=== PATIENT | male | born 1945 | race Caucasian/White ===

== ENCOUNTER 2023-06-15 15:21 | Outpatient (CLI) | payer MEDICARE, OTHER | END 2023-06-15 15:22 | disposition critical access hospital (66) | LOC: EMS 15:21 | DX: R46.89 Other symptoms and signs involving appearance and behavior (principal); M54.9 Dorsalgia, unspecified; W19.XXXA Unspecified fall, initial encounter; Y92.099 Unspecified place in other non-institutional residence as the place of occurrence of the external cause | CPT/HCPCS: A0425; A0429 ==

== ENCOUNTER 2023-06-15 15:42 | Emergency (ER) | payer MEDICARE, OTHER ==
[2023-06-15 16:29] LABS: BASOPHILS % (AUTO) 0.2 %; EOSINOPHILS # (AUTO) 0.3 10^3/uL (0.0-0.7); EOSINOPHILS % (AUTO) 5.6 %; HCT - HEMATOCRIT 34.4 % (42.0-52.0); HGB - HEMOGLOBIN 11.4 g/dL (14.0-18.0); LYMPHOCYTES # (AUTO) 0.6 10^3/uL (1.5-3.5); LYMPHOCYTES % (AUTO) 11.1 %; MEAN CORPUSCULAR HEMOGLOBIN 31.8 pg (27.0-31.0); MEAN CORPUSCULAR HGB CONC 33.1 g/dL (32.0-36.0); MEAN CORPUSCULAR VOLUME 96.1 fL (80.0-94.0); MEAN PLATELET VOLUME 9.8 fL (7.4-11.4); MONOCYTES # (AUTO) 0.5 10^3/uL (0.0-1.0); MONOCYTES % (AUTO) 8.7 %; NEUTROPHILS # (AUTO) 3.9 10^3/uL (1.5-6.6); PLT - PLATELET COUNT 192 10^3/uL (130-450); RED BLOOD COUNT 3.58 10^6/uL (4.70-6.10); RED CELL DISTRIBUTION WIDTH 15.1 % (12.0-15.0); WHITE BLOOD COUNT 5.3 x10^3/uL (4.8-10.8)
--- NOTE | 2023-06-15 16:44 | XRAY Report ---
PROCEDURE: Chest 1 View X-Ray INDICATIONS: AMS TECHNIQUE: One view of the chest was acquired. COMPARISON: None. FINDINGS: Surgical changes and devices: Median sternotomy wires and surgical clips are seen.. Lungs and pleura: No pleural effusions or pneumothorax. Lungs are clear. Mediastinum: Mediastinal contours appear normal. Heart size is normal. Bones and chest wall: No suspicious bony lesions. Overlying soft tissues appear unremarkable. IMPRESSION: No acute cardiopulmonary process. Reviewed by: Kulwinder To MD on 06/15/2023 4:43 PM PDT Approved by: Kulwinder To MD on 06/15/2023 4:43 PM PDT Station ID: [id number]
[2023-06-15 16:59] LABS: ALBUMIN 3.9 g/dL (3.2-5.5); ALBUMIN/GLOBULIN RATIO 1.8 (1.0-2.2); ALKALINE PHOSPHATASE 67 IU/L (42-121); ALT ALANINE AMINOTRANSFERASE 26 IU/L (10-60); AST ASPARTATE AMINOTRANSFERASE 28 IU/L (10-42); BILIRUBIN,TOTAL 0.4 mg/dL (0.2-1.0); BUN - BLOOD UREA NITROGEN 19 mg/dL (6-20); CALCIUM 9.2 mg/dL (8.5-10.3); CARBON DIOXIDE - CO2 30 mmol/L (21-32); CHLORIDE 103 mmol/L (101-111); CREATININE 0.7 mg/dL (0.6-1.3); ETOH - ETHANOL < 10.0 mg/dL; GFR - MDRD 109 (>89); GLUCOSE 139 mg/dL (74-104); MAGNESIUM 1.4 mg/dL (1.7-2.3); POTASSIUM 3.8 mmol/L (3.5-4.5); SODIUM 139 mmol/L (135-145); TOTAL PROTEIN 6.1 g/dL (6.4-8.9)
[2023-06-15 17:01] LABS: MUDS CUTOFF CONCENTRATIONS CUTOFF CONC BELOW:
[2023-06-15 17:02] LABS: SALICYLATE < 1.5 mg/dL; THYROID STIMULATING HORMONE 0.12 uIU/mL (0.34-5.60)
[2023-06-15 17:03] LABS: BILIRUBIN,URINE NEGATIVE (NEGATIVE); GLUCOSE, URINE (UA) NEGATIVE (NEGATIVE); KETONES,URINE (UA) TRACE mg/dL (NEGATIVE); LEUKOCYTE ESTERASE, URINE NEGATIVE (NEGATIVE); NITRITE,URINE NEGATIVE (NEGATIVE); OCCULT BLOOD,URINE NEGATIVE (NEGATIVE); PROTEIN,URINE NEGATIVE (NEGATIVE); UROBILINOGEN,URINE 0.2 (NORMAL) E.U./dL (NORMAL)
[2023-06-15 17:05] LABS: CLARITY,URINE CLEAR (CLEAR)
--- NOTE | 2023-06-15 17:11 | ED Physician Documentation ---
History of Present Illness - Stated complaint Stated Complaint: FALL/BACK PX - Chief complaint Chief Complaint: General - History obtained from History obtained from: Patient, Family, Other (Social work) - Additonal information Additional information: 78-year-old male with history of Alzheimer's presents by EMS from [facility]. EMS states that the call was made for a ground-level fall with lumbar back pain. EMS also stated that the patient was reported to be agitated and possibly violent. On arrival the patient was calm, cooperative, no acute distress, denying complaint. at bedside states that patient has had outbursts over the last several weeks and they are trying to figure out a good medication regimen for the patient for his agitation Social work came shortly after patient's arrival and stated that they talked to the nursing informatics specialist. customs port director told social work that they needed a [facility] psych consultation for violence and outbursts Review of Systems Unable to obtain: Dementia PD PAST MEDICAL HISTORY - Past Medical History Past Medical History: Yes - Present Medications Home Medications: Ambulatory Orders Medication Instructions Recorded Confirmed Albuterol Sulf [Ventolin Hfa 2 puffs PO Q6H PRN 06/15/23 06/15/23 Inhaler] Aspirin [Vazalore] 162 mg PO BID 06/15/23 06/15/23 Atorvastatin Calcium [Lipitor] 80 mg PO DAILY 06/15/23 06/15/23 Citalopram [CeleXA] 30 mg PO DAILY 06/15/23 06/15/23 Divalproex Sodium [Depakote ER] 500 mg PO DAILY 06/15/23 06/15/23 HYDROcod/ACETAM 5/325 [Sheldon 5/325] 1 unit PO DAILY 06/15/23 06/15/23 LORazepam [Ativan] 0.5 mg PO BID 06/15/23 06/15/23 Lidocaine Patch 5% [Lidoderm Patch] 1 unit TOP DAILY 06/15/23 06/15/23 Melatonin/Pyridoxine [Melatonin 5 1 each PO QPM 06/15/23 06/15/23 mg Tablet] Metoprolol Succinate [Kapspargo 50 mg PO DAILY 06/15/23 06/15/23 Sprinkle] Mirtazapine [Remeron] 15 mg PO QPM 06/15/23 06/15/23 Multivitamin 1 unit PO DAILY 06/15/23 06/15/23 OLANZapine [Zyprexa] 2.5 mg PO DAILY 06/15/23 06/15/23 Tamsulosin [Flomax] 1 cap PO DAILY 06/15/23 06/15/23 Triamcinolone 0.1% Cream [Kenalog 1 applic TOP DAILY 06/15/23 06/15/23 0.1% Cream] metFORMIN [Glucophage] 1,000 mg PO BID 06/15/23 06/15/23 traZODone [Desyrel] 50 mg PO BID 06/15/23 06/15/23 - Allergies Allergies/Adverse Reactions: Allergies Allergy/AdvReac Type Severity Reaction Status Date / Time donepezil Allergy Hallucinati Verified 06/15/23 15:58 ons quetiapine [From Seroquel] Allergy Hallucinati Verified 06/15/23 15:58 ons PD ED PE NORMAL - Vitals Vital signs reviewed: Yes - General General: No acute distress, Well developed/nourished, Other (AOx2) - HEENT HEENT: Atraumatic - Cardiac Cardiac: RRR, Strong equal pulses - Respiratory Respiratory: No respiratory distress, Clear bilaterally - Abdomen Abdomen: Soft, Non tender - Derm Derm: Normal color, Warm and dry, No rash - Extremities Extremities: No deformity, No tenderness to palpate, Normal ROM s pain, No edema - Neuro Neuro: Alert and oriented X 3, wild life photographer 2-12 intact, No motor deficit, Normal speech - Psych Psych: Normal mood, Normal affect Results - Vitals Vitals: Vital Signs - 24 hr 06/15/23 06/15/23 15:52 20:29 Temperature 37.3 C Heart Rate 59 L 60 Respiratory 20 18 Rate Blood Pressure 136/76 H 100/54 L O2 Saturation 100 99 Oxygen O2 Source Room air - Labs Labs: Laboratory Tests 06/15/23 06/15/23 06/15/23 16:23 16:23 16:43 WBC 5.3 RBC 3.58 L Hgb 11.4 L Hct 34.4 L MCV 96.1 H MCH 31.8 H MCHC 33.1 RDW 15.1 H Plt Count 192 MPV 9.8 Neut # (Auto) 3.9 Lymph # (Auto) 0.6 L [place] # (Auto) 0.5 Eos # (Auto) 0.3 Baso # (Auto) 0.0 Absolute Nucleated RBC 0.00 Nucleated RBC % 0.0 Sodium 139 Potassium 3.8 Chloride 103 Carbon Dioxide 30 Anion Gap 6.0 BUN 19 Creatinine 0.7 Estimated GFR (MDRD) 109 Glucose 139 H Calcium 9.2 Magnesium 1.4 L Total Bilirubin 0.4 AST 28 ALT 26 Alkaline Phosphatase 67 Total Protein 6.1 L Albumin 3.9 Globulin 2.2 Albumin/Globulin Ratio 1.8 TSH 0.12 L Urine Color YELLOW Urine Clarity CLEAR Urine pH 7.0 Ur Specific [place] 1.015 Urine Protein NEGATIVE Urine Glucose (UA) NEGATIVE Urine Ketones TRACE Urine Occult Blood NEGATIVE Urine Nitrite NEGATIVE Urine Bilirubin NEGATIVE Urine Urobilinogen 0.2 (NORMAL) Ur Leukocyte Esterase NEGATIVE Ur Microscopic Review NOT INDICATED Urine Culture Comments NOT INDICATED Salicylates < 1.5 Urine Opiates Screen Ur Oxycodone Screen Urine Methadone Screen Ur Propoxyphene Screen Acetaminophen 2.0 Ur Barbiturates Screen Ur Tricyclics Screen Ur Phencyclidine Scrn Ur Amphetamine Screen U Methamphetamines Scrn U Benzodiazepines Scrn Urine Cocaine Screen U Cannabinoids Screen Ethyl Alcohol < 10.0 06/15/23 16:43 WBC RBC Hgb Hct MCV MCH MCHC RDW Plt Count MPV Neut # (Auto) Lymph # (Auto) [place] # (Auto) Eos # (Auto) Baso # (Auto) Absolute Nucleated RBC Nucleated RBC % Sodium Potassium Chloride Carbon Dioxide Anion Gap BUN Creatinine Estimated GFR (MDRD) Glucose Calcium Magnesium Total Bilirubin AST ALT Alkaline Phosphatase Total Protein Albumin Globulin Albumin/Globulin Ratio TSH Urine Color Urine Clarity Urine pH Ur Specific [place] Urine Protein Urine Glucose (UA) Urine Ketones Urine Occult Blood Urine Nitrite Urine Bilirubin Urine Urobilinogen Ur Leukocyte Esterase Ur Microscopic Review Urine Culture Comments Salicylates Urine Opiates Screen POSITIVE H Ur Oxycodone Screen NEGATIVE Urine Methadone Screen NEGATIVE Ur Propoxyphene Screen NEGATIVE Acetaminophen Ur Barbiturates Screen NEGATIVE Ur Tricyclics Screen NEGATIVE Ur Phencyclidine Scrn NEGATIVE Ur Amphetamine Screen NEGATIVE U Methamphetamines Scrn NEGATIVE U Benzodiazepines Scrn POSITIVE H Urine Cocaine Screen NEGATIVE U Cannabinoids Screen NEGATIVE Ethyl Alcohol PD Medical Decision Making - ED course Complexity details: reviewed results, re-evaluated patient, considered differential, d/w patient, d/w reporting consultant ED course: Possible fall, patient primarily sent in for worsening agitation and outburst. He is currently calm, cooperative, resting comfortably in bed and eating Cheetos.Denies complaints. Patient is medically cleared for psychiatric consult. Patient thoroughly evaluated by telemetry psychiatry. They have made medication recommendations as well as recommendation for further evaluation of thyroid due to decreased TSH. This can be done on an outpatient basis. Patient discharged back to facility in stable condition. Departure - Departure Disposition: 01 Home, Self Care Clinical Impression: Dementia with behavioral disturbance Condition: Stable Instructions: ED Dementia Caregiver Support Forms: PCP List
[2023-06-15 17:24] LABS: AMPHETAMINE SCREEN,URINE NEGATIVE (NEGATIVE); BARBITURATE SCREEN,UR NEGATIVE (NEGATIVE); BENZODIAZEPINES SCREEN, URINE POSITIVE (NEGATIVE); COCAINE SCREEN URINE NEGATIVE (NEGATIVE); METHADONE SCREEN, URINE NEGATIVE (NEGATIVE); METHAMPHETAMINES SCREEN, URINE NEGATIVE (NEGATIVE); OPIATE SCREEN, URINE POSITIVE (NEGATIVE); OXYCODONE SCREEN, URINE NEGATIVE (NEGATIVE); PROPOXYPHENE SCREEN, URINE NEGATIVE (NEGATIVE); THC CANNABINOID SCREEN, URINE NEGATIVE (NEGATIVE); TRICYCLIC ANTIDEPRESSANT,URINE NEGATIVE (NEGATIVE)
--- NOTE | 2023-06-15 18:45 | CT Report ---
PROCEDURE: HEAD WO INDICATIONS: AMS TECHNIQUE: Noncontrast 4.5 mm thick angled axial sections acquired from the foramen magnum to the vertex. For r adiation dose reduction, the following was used: automated exposure control, adjustment of mA and/or kV according to patient size. COMPARISON: None. FINDINGS: Image quality: Excellent. CSF spaces: Basal cisterns are patent. No extra-axial fluid collections. Ventricles are normal in size and shape. Brain: No midline shift. No intracranial masses or hemorrhage. Lacy-white matter interface is norm al. Skull and face: Calvarium and visualized facial bones are intact, without suspicious lesions. Sinuses: Visualized sinuses and mastoids are clear. IMPRESSION: No acute intracranial pathology. Reviewed by: Padilla Felix MD on 06/15/2023 6:44 PM PDT Approved by: Padilla Felix MD on 06/15/2023 6:44 PM PDT Station ID: [id number]
--- NOTE | 2023-06-15 20:41 | TELEPSYCH PHYS NOTE ---
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 It was reported that the patient has been experiencing increased agitation and has not been responding to medications changes made by the psychiatric providers. Memory care RN reported to KARISSA at [facility] that the patient is a "danger to himself and others" but offer no specifics. They are requesting a stuart-psych evaluation and placement. Mone ent's is present at bedside. Community Resources Accessed: memory care Nutritional Status: Decrease in food intake and/or appetite - Medication & Allergies Home Medications: Ambulatory Orders Medication Instructions Recorded Confirmed Aspirin [Vazalore] 162 mg PO BID 06/15/23 06/15/23 Atorvastatin Calcium [Lipitor] 80 mg PO DAILY 06/15/23 06/15/23 Allergies/Adverse Reactions: Allergies Allergy/AdvReac Type Severity Reaction Status Date / Time donepezil Allergy Hallucinati Verified 06/15/23 15:58 ons quetiapine [From Seroquel] Allergy Hallucinati Verified 06/15/23 15:58 ons - Drug & Alcohol History Use: Uses substance without health or social issues: NONE Abuse: Recurrent use of substance despite neg consequences: NONE Dependence: Experiences withdrawal or developed tolerances: NONE - Personal Information Does the patient have a history or present tendencies for violence?: Present Does patient have any Legal Charges or Investigations?: No Environment & Living Situation - Social, Peer-Group (Note): longterm Environment & Living Situation - Social, Peer-Group (Notes): memory care Marital Status - Family Circumstances:
[2023-06-15 23:07] LABS: VALPROIC ACID (DEPAKOTE) 35.1 ug/mL
[2023-06-15] MEDS ORDERED: DIVALPROEX DR 125 MG TABLET PO STA (23:15)
[2023-06-15] MEDS ORDERED: MIRTAZAPINE 15 MG TABLET PO STA (23:34)
[2023-06-15] MEDS ORDERED: LORazepam 0.5 MG TABLET PO STA (23:34)
[2023-06-16] MEDS ORDERED: risperiDONE 0.25 MG TABLET PO STA (01:46)
--- NOTE | 2023-06-16 01:49 | ED Physician Documentation ---
ED Addendum - Addendum Addendum: 06/16/23 01:46 After patient was discharged ana reached out to me requesting that we keep the patient here for a period of observation after adding depakote and prn risperdal, which was recommended by the telepsych consult (see notes). He has tolerated a period of observation both with his present and after a couple hours on his own. patient did get out of bed a couple times but was easily encouraged back to bed. I filled out EMS transport forms given his history of dementia. Patient compliant and agreeable with ems crew.
[2023-06-16] MEDS ORDERED: risperiDONE 0.25 MG TABLET PO ONE (02:04)
[2023-06-16 02:13] VITALS: BP 101/84; O2SAT 969
== END 2023-06-16 02:10 | disposition home or self-care (01) ==
LOC: ED 15:42
DX: F03.918 Unspecified dementia, unspecified severity, with other behavioral disturbance (principal); W19.XXXA Unspecified fall, initial encounter
CPT/HCPCS: 36415; 70450; 71045; 80053; 80164; 80306; 80307; 81003; 83735; 84443; 85025; 93005; 99283; 99285; A9270; G0480; 80320; 80329; 81001; 87086